=== PATIENT | female | born 1975 | race Caucasian/White ===

== ENCOUNTER 2019-05-16 11:12 | Emergency (ER) | payer OTHER ==
[~2019-05-16] VITALS: Ht 154.9 cm; Wt 104.3 kg
[~2019-05-16 11:12] MED LIST: IBUPROFEN 800800 M1 PO
[2019-05-16] MEDS ORDERED: PROAIR HFA8.5 GM INH (11:30)
[2019-05-16] MEDS ORDERED: IPRAT-ALBUT 0.5-3 ML INH (11:46)
[2019-05-16] MEDS ORDERED: ZPAK PO (12:16)
[2019-05-16 12:31] VITALS: BP 134/76
== END 2019-05-16 12:32 | disposition home or self-care (01) ==
LOC: M.ERS 11:12
DX: J45.901 Unspecified asthma with (acute) exacerbation (principal); Z90.710 Acquired absence of both cervix and uterus